=== PATIENT | male | born 1945 | race Caucasian/White ===

== ENCOUNTER → 2017-03-14 | Outpatient (CLI) | payer MEDICARE ==
[~2017-03-14] MED LIST: AMLO5TAB2 PO; ASPI-496 PO; ATOR40TA78 PO
== END | disposition home or self-care (01) ==
LOC: STAR 09:30
PROVIDERS: ATTEND Surgery
DX: Z01.818 Encounter for other preprocedural examination (principal); K43.2 Incisional hernia without obstruction or gangrene
CPT/HCPCS: 93005

== ENCOUNTER 2017-03-24 05:48 | Day surgery (SDC) | payer MEDICARE ==
[~2017-03-24] VITALS: Ht 180.3 cm; Wt 78.7 kg
[2017-03-24] MEDS ORDERED: LACTATED RINGERS 1,000 ML IV SCH (06:38)
[2017-03-24 06:39] VITALS: BP 149/99
[2017-03-24] MEDS ORDERED: BUPIVACAINE/PF 0.5% ONE (06:44)
[2017-03-24] MEDS ORDERED: EPINEPHRINE 1 MG/ML, 1ML ONE (06:45)
[2017-03-24] MEDS ORDERED: FENTANYL PF 100 MCG/2ML ONE ×2 (07:19→09:41)
[2017-03-24] MEDS ORDERED: GLYCOPYRROLATE 0.2MG/1ML, 5ML ONE (07:28)
[2017-03-24] MEDS ORDERED: METOCLOPRAMIDE 5 MG/ML, 2ML ONE (07:28)
[2017-03-24] MEDS ORDERED: SUCCINYLCHOLINE 20 MG/ML, 10ML ONE (07:28)
[2017-03-24] MEDS ORDERED: CEFAZOLIN 1,000 MG ONE (07:28)
[2017-03-24] MEDS ORDERED: NEOSTIGMINE 1 MG/ML, 10ML ONE (07:28)
[2017-03-24] MEDS ORDERED: ONDANSETRON 2MG/ML, 2ML ONE ×2 (07:28→12:21)
[2017-03-24] MEDS ORDERED: DEXAMETHASONE 4 MG/ML, 1ML ONE (07:28)
[2017-03-24] MEDS ORDERED: ROCURONIUM 10 MG/ML ONE (07:28)
[2017-03-24] MEDS ORDERED: PROPOFOL 10 MG/ML, 20ML ONE (07:28)
[2017-03-24] MEDS ORDERED: BUPIVACAINE/PF-EPI 0.5% 1:200K INFIL ONE (07:56)
[2017-03-24] MEDS ORDERED: ACETAMINOPHEN 325 MG TABLET PO PRN (08:00)
[2017-03-24] MEDS ORDERED: DIAZEPAM 5 MG/ML, 2ML IVPush PRN (08:00)
[2017-03-24] MEDS ORDERED: OXYcodone 5 MG/5 ML ORAL.SOL UDC PO PRN (08:00)
[2017-03-24] MEDS ORDERED: ONDANSETRON 2MG/ML, 2ML IVPush PRN ×2 (08:00→12:30)
[2017-03-24] MEDS ORDERED: HYDROmorphone 1 MG/ML, 1ML IV PRN (08:00)
[2017-03-24] MEDS ORDERED: LORazepam 2 MG/ML, 1ML IVPush PRN (08:00)
[2017-03-24] MEDS ORDERED: LABETALOL 5MG/ML, 20ML IV PRN (08:00)
[2017-03-24] MEDS ORDERED: hydrALAzine 20 MG/ML, 1ML IV PRN (08:00)
[2017-03-24] MEDS ORDERED: MIDAZOLAM 1 MG/ML, 2ML IV PRN (08:00)
[2017-03-24] MEDS ORDERED: PROMETHAZINE 25 MG/ML, 1ML IV PRN (08:00)
[2017-03-24] MEDS ORDERED: OXYcodone 5 MG/5 ML ORAL.SOL UDC ONE (09:41)
[2017-03-24] MEDS ORDERED: ACETAMINOPHEN 650 MG/20.3 ML UDC ONE (09:41)
[2017-03-24] MEDS: FENTANYL PF 100 MCG/2ML IV PRN ×2 (09:42→09:47)
[2017-03-24] MEDS ORDERED: OXYcodone/APAP 5/325MG TABLET ONE (13:54)
[2017-03-24] MEDS ORDERED: OXYcodone/APAP 5/325MG TABLET PO PRN (14:00)
== END 2017-03-24 16:10 ==
LOC: OUT 05:48
PROVIDERS: ATTEND Surgery
DX: K43.6 Other and unspecified ventral hernia with obstruction, without gangrene (principal); E78.5 Hyperlipidemia, unspecified; I10 Essential (primary) hypertension; Z79.82 Long term (current) use of aspirin; Z87.01 Personal history of pneumonia (recurrent)
CPT/HCPCS: 49653; C1781; J0171; J0330; J0690; J1100; J2405; J2704; J2710; J2765; J3010; J3490; J7120